=== PATIENT | female | born 2000 | race Two or more races ===

== ENCOUNTER 2025-01-05 14:36 | Emergency (ER) | payer MEDICAID, SELFPAY ==
[2025-01-05 14:36] VITALS: BMI 31.2
--- NOTE | 2025-01-05 14:53 | XR_ITS ---
Examination: Complete OB ultrasound, less than 14 weeks, transabdominal Date and time of exam: January 05, 2025 1512 hours INDICATIONS: Vaginal bleeding and pelvic cramping beginning 2 weeks ago Technique: Obstetrical ultrasound images less than 14 weeks performed via transabdominal imaging Findings: A normal shaped single intrauterine gestation is present in the uterus. Uterus 10.2 cm, pole 0.6 cm correspondences 6 weeks 3 days gestational age Cardiac motion 120 BPM Adjacent subchorionic hemorrhage 11 x 6 mm Ultrasonographic survey of visible and placental structures unremarkable. Amniotic fluid volume appears appropriate for this estimated gestational age. Right ovary 2.9 cm arterial flow Left ovary 3.4 cm arterial flow IMPRESSION: Viable intrauterine gestation 6 weeks 3 days Recommend short-term follow-up, given the subchorionic hemorrhage.
[2025-01-05 15:00] VITALS: BP 105/60; PULSE 84; RESP 18; TEMP 36.6; O2SAT 99
--- NOTE | 2025-01-05 15:03 | EDNOTE_ITS ---
ED OB Contraction Preg RMI/HPI General Chief complaint: OB/Uterine Contractions Stated complaint: BLEEDING, CRAMPING, PREG 7WKS Time Seen by Provider: 01/05/25 14:52 Arrival date/time: 01/05/25 14:36 Limitations: no limitations RME / HPI RME / HPI Narrative: 24 year old female, currently approximately 8 weeks gestational age, presents to the ED for evaluation of vaginal bleeding and pelvic cramping. She reports that the bleeding initially began about one week ago and was only noted while wiping. At that time, the pain was mild. She was evaluated at [facility], where an ultrasound showed an estimated gestational age of approximately 6 weeks, and her HCG level was in the 2,000s. Was advised to follow up with her provider in two days for repeat HCG testing, which she did, though results are still pending. Patient states the bleeding and pain had since improved; however, earlier today while at work, she experienced a recurrence of vaginal spotting along with pelvic and lower abdominal cramping, as well as lower back pain. No other associated symptoms or complaints reported. LMP 10/18/2024. Related Data Home Medications ?Medication ?Instructions ?Recorded ?Confirmed vitamins-iron fumarate 27 1 tab PO QDAY 05/1508/24/22 mg iron-folic acid 0.8 mg tablet ( Vitamin) Previous Rx's ?Medication ?Instructions ?Recorded docusate sodium 100 mg capsule 100 mg PO BID #60 caps 09/25/22 (Colace) ibuprofen 600 mg tablet 600 mg PO Q6H PRN pain #90 t abs 09/25/22 lanolin 50 % topical ointment 1 applic topical TID PRN skin 09/25/22 irritation #15 tubes Allergies Allergy/AdvReac Type Severity Reaction Status Date / Time No Known Allergies Allergy Verified 01/05/25 14:38 Review of Systems Review of Systems Systems Reviewed: All systems reviewed, normal except as documented Past Medical History Past Medical History GASTROINTESTINAL: Positive Gastrointestinal Disorders and Hemorrhoids REPRODUCTIVE: Positive Previous Pregnancies PSYCHO/SOCIAL: Positive Depression and Anxiety OTHER HISTORY: Positive Chicken Pox Family History FAMILY HISTORY: Positive Family Surgery; Negative Family Psychiatric Problems, Family Respiratory Disorders, Family Cardiac Disorders, Family Gastrointestinal Problems, Family Cancer or Family Anesthesia Reaction Surgical History SURGICAL: Negative Pacemaker, Endocrine Surgery, Thyroidectomy, Ear Surgery, Tympanostomy Tube, Eye Surgery, Nose Surgery, Oral Surgery, Tonsillectomy, Adenoidectomy, Cochlear Implant, Corneal Transplant, Throat Surgery, Abdominal Surgery, Tracheostomy, Gastric Bypass Surgery, Gastrostomy, Bowel Surgery, Nephrectomy, Transurethral Resection, Joint Replacement, Amputation, Mastectomy, Lumpectomy, Hysterectomy, Tubal Ligation, Section or Vasectomy Social History SMOKING STATUS: Never smoker SECOND HAND EXPOSURE: No SUBSTANCE USE: does not use ED Exam General Limitations: Present no limitations General appearance: Present alert and in no apparent distress Head Head exam: Present atraumatic Eye Eye exam: Present normal appearance, PERRL and EOMI ENT ENT exam: Present normal exam, normal oropharynx and mucous membranes moist Neck Neck exam: Present normal inspection, full ROM and trachea midline Chest Chest inspection: Present normal inspection and symmetric chest wall rise Respiratory Respiratory exam: Present normal lung sounds bilaterally Cardiovascular Cardiovascular exam: Present regular rate, normal rhythm and normal heart sounds Abdominal Exam Abdominal exam: Present soft and normal bowel sounds Extremities Exam Extremities exam: Present normal inspection and full ROM Back Exam Back exam: Present normal inspection and full ROM Neurological Exam Neurological exam: Present alert, oriented X3 and CN II-XII intact Psychiatric Psychiatric exam: Present normal affect and normal mood Skin Skin exam: Present warm, dry, intact and normal color Course Quality Measures none Orders Category Date Time Status Continuous Pulse Oximetry NOW Care 01/05/25 14:53 Active NPO NEEDED Care 01/05/25 14:53 Active US OB <= 14 weeks fetus Stat Exams 01/05/25 14:53 Completed ABO/RH Type Stat Lab 01/05/25 15:11 Completed Beta HCG,Quantitative Stat Lab 01/05/25 15:11 Completed CBC Stat Lab 01/05/25 15:11 Completed CMP [Comprehensive Metabolic Panel] Stat Lab 01/05/25 15:11 Completed Partial Thromboplastin Time Stat Lab 01/05/25 15:11 Completed Prothrombin Time with INR Stat Lab 01/05/25 15:11 Completed Urinalysis, C/S if Indicated Stat Lab 01/05/25 15:54 Completed Sodium Chloride 0.9% 1000 ml [Ns] 1,000 ml Med 01/05/25 14:53 Discontinued IV 999 mls/hr Vital Signs Vital signs: Vital Signs Temperature 98 F 01/05/25 15:00 Pulse Rate 84 01/05/25 15:00 Respiratory Rate 18 01/05/25 15:00 Blood Pressure 105/60 01/05/25 15:00 Pulse Oximetry (%) 99 01/05/25 15:00 Oxygen Delivery Method Room Air 01/05/25 15:00 Pulse ox is 99% on room air which is adequate. OB/Uterine Contractions MDM Narrative MDM Narrative:: Kasey Barrios am scribing for and in the presence of Dr. Malagon. Patient data External records reviewed:: [facility] previous records (I reviewed ED visit on 11/25/2020 ) Clinical information provided by:: patient Social determinants that could affect healthcare access:: none Patient has the following chronic illnesses:: No chronic medical hx reported How is presenting disease/condition affected by chronic disease/condition?: no chronic disease Evaluation data The following diagnostics were reviewed and interpreted by me:: lab results and radiology exam(s) Lab and/or radiology exams considered but not ordered:: None Interpretation Summary: Ordering Physician: Karl Malagon MD Date of Service: 01/05/25 Procedure(s): US OB <= 14 weeks fetus Accession Number(s): [id number] cc: Karl Malagon MD; Rico Ramos MD; Antonia Graves NP~ Examination: Complete OB ultrasound, less than 14 weeks, transabdominal Date and time of exam: January 05, 2025 1512 hours INDICATIONS: Vaginal bleeding and pelvic cramping beginning 2 weeks ago Technique: Obstetrical ultrasound images less than 14 weeks performed via transabdominal imaging Findings: A normal shaped single intrauterine gestation is present in the uterus. Uterus 10.2 cm, pole 0.6 cm correspondences 6 weeks 3 days gestational age Cardiac motion 120 BPM Adjacent subchorionic hemorrhage 11 x 6 mm Ultrasonographic survey of visible and placental structures unremarkable. Amniotic fluid volume appears appropriate for this estimated gestational age. Right ovary 2.9 cm arterial flow Left ovary 3.4 cm arterial flow IMPRESSION: Viable intrauterine gestation 6 weeks 3 days Recommend short-term follow-up, given the subchorionic hemorrhage. Dictated By: Rico Ramos MD Signed By: <Electronically signed by Rico Ramos MD in OV> 01/05/25 1537 Medications / Prescriptions Medications or Prescriptions considered but not ordered:: None Medication administrations:: Medication Administration History Discontinued Medications Sodium Chloride (Ns) 1,000 mls @ 999 mls/hr IV .Q1H1M ONE Stop: 01/05/25 15:53 Last Admin: 01/05/25 16:09 Dose: 999 mls/hr Documented By: MAYKEL See above Consultations Consultation(s) initiated? (list below): No Diagnosis OB Contractions Differential Diagnosis: other (Vaginal bleeding, threatened , missed , ectopic ) Most likely diagnosis given after review of the tests above:: single IUP vaginal bleeding Admission Indicated Explain why admission is indicated or not indicated:: Does not meet admission criteria Admission Request Was there a request for admission?: No Disposition Plan Disposition Plan: Discharge Discharge Attestation Discharge Attestation: The patient and all family members were given an opportunity to ask questions and understood the discharge instructions. Discharge instructions specifically effects, indications for sooner follow up or return to the emergency department, and the expected course of current diagnosis. Patient condition: Stable Discharge Plan Plan Patient Disposition: HOME (Self Care) Prescriptions/Referrals Prescriptions/Med Rec: No Action Vitamin 27 mg iron- 0.8 mg Tablet 1 tab PO QDAY docusate sodium [Colace] 100 mg capsule 100 mg PO BID Qty: 60 0RF ibuprofen 600 mg tablet 600 mg PO Q6H PRN (Reason: pain) Qty: 90 0RF lanolin 50 % ointment 1 applic topical TID PRN (Reason: skin irritation) Qty: 15 0RF Referrals: Antonia Graves RAZOR GRINDER [Primary Care Provider] - In 1 week Problem List Clinical Impression: Intrauterine , Vaginal bleeding Patient/Caregiver Discharge Instructions Education Materials: First Trimester Additional Instructions: Follow-up with your OB within 2-3 days for recheck. You can return to the emergency department sooner if symptoms worsen or if you notice any new, concerning issues. Print Language: Spanish Stand Alone Forms: Meri Award Info., Patient Portal Info Letter
[2025-01-05 15:59] LABS: Basophils % (Auto) 0 % (0-2.5); Eosinophils # (Auto) 0.1 Thou/mm3 (0.0-0.5); Eosinophils % (Auto) 1 % (0-10); Immature Granulocytes % (Auto) 0 % (0-0); Immature Granulocytes Auto 0.02 Thou/mm3 (0.00-0.00); Lymphocytes # (Auto) 2.4 Thou/mm3 (1.0-4.8); Lymphocytes % (Auto) 24 % (10-50); Mean Corpuscular HGB Conc 34.2 g/dl (31.0-37.0); Mean Corpuscular Hemoglobin 30.7 pg (25.0-35.0); Mean Corpuscular Volume 90 fL (80-100); Monocytes # (Auto) 0.5 Thou/mm3 (0.0-0.8); Monocytes % (Auto) 5 % (0-12); Neutrophils % (Auto) 70 % (37-80); Nucleated Red Blood Cell % 0 /100 WBC (0); Platelet Count 301 Thou/mm3 (140-440); RDW Standard Deviation 41.4 fL (36.4-46.3); Red Blood Count 4.23 Miln/mm3 (4.00-5.20); White Blood Count 10.1 Thou/mm3 (3.6-11.0)
[2025-01-05 16:05] LABS: Collection Type, Urine Clean Catch; RBC,Urine 0 /hpf (0-3)
[2025-01-05] MEDS: SODIUM CHLORIDE 0.9% 1000 ML 1,000 ML 999 ML IV (16:09)
[2025-01-05 16:14] LABS: Bacteria,Urine Rare; Bilirubin,Urine Negative (Negative); Blood,Urine Trace (Negative); Clarity,Urine Clear (Clear/Hazy); Color,Urine Yellow (Lt Yel-Yel); Culture Indicated,Urine Not Indicated; Glucose, Urine Negative (Negative); Ketones,Urine Negative (Negative); Leukocyte Esterase,Urine Negative (Negative); Nitrite,Urine Negative (Negative); PH,Urine 6.5 (5.0-7.0); Protein,Urine Negative (Neg - Trace); Specific Gravity,Urine 1.027 (1.001-1.035); Squamous Epithelial Cell,Urine 4 /hpf (0-5); Urobilinogen,Urine Negative mg/dL (0.0-1.0); WBC,Urine < 1 /hpf (0-5)
[2025-01-05 16:20] LABS: Alanine Aminotransferase 15 U/L (10-49); Albumin, Serum 3.9 gm/dL (3.5-5.0); Albumin/Globulin Ratio 1.4 (1.2-2.2); Alkaline Phosphatase 66 U/L (46-116); Anion Gap 9 (7-16); Aspartate Amino Transferase 19 U/L (0-34); BUN/Creatinine Ratio 9 Ratio (12-20); Bilirubin,Total 0.5 mg/dL (0.3-1.2); Blood Urea Nitrogen 6 mg/dL (9-23); Calcium 8.8 mg/dL (8.3-10.6); Calcium (Corrected) 8.9 mg/dL (8.5-10.1); Carbon Dioxide 22.1 mMol/L (20.0-31.0); Chloride 108 mMol/L (98-107); Creatinine (Component) 0.7 mg/dL (0.6-1.3); Estimated Creatinine Clearance 108.3 mL/min (>60); Globulin 2.7 gm/dL (2.3-3.5); Glucose 83 mg/dL (74-106); INR 0.9 (0.9-1.3); Osmolality,Calculated 274 (275-295); Partial Thromboplastin Time 28.1 Seconds (22.0-36.0); Potassium 3.7 mMol/L (3.4-5.1); Prothrombin Time 10.4 Seconds (9.0-12.2); Sodium 139 mMol/L (136-145); Total Protein 6.6 gm/dL (5.7-8.2); eGFR > 60 See Note
[2025-01-05 16:51] LABS: Beta HCG,Quantitative 61962 mIU/mL (<5.0)
== END 2025-01-05 17:40 | disposition home or self-care (01) ==
PROVIDERS: Emergency Provider Family Medicine; PCP Registered Nurse
DX: O20.8 Other hemorrhage in early pregnancy (principal); Z3A.01 Less than 8 weeks gestation of pregnancy
CPT/HCPCS: 36415; 76801; 80053; 81001; 84702; 85025; 85610; 85730; 86900; 86901; 99284; J7030